=== PATIENT | male | born 1980 | race Caucasian/White ===

== ENCOUNTER 2017-12-13 20:21 | Emergency (ER) | payer SELFPAY ==
[~2017-12-13] VITALS: Ht 175.3 cm; Wt 86.2 kg
[2017-12-13 20:29] VITALS: BP 162/86
== END 2017-12-13 20:50 | disposition left against medical advice (07) ==
LOC: ER 20:23
DX: R00.2 Palpitations (principal); F41.9 Anxiety disorder, unspecified; Z53.21 Procedure and treatment not carried out due to patient leaving prior to being seen by health care provider
CPT/HCPCS: A4606; Z7610